=== PATIENT | male | born 1990 | race Hispanic/Latino ===

== ENCOUNTER 2018-07-06 01:37 | Inpatient (IN) | payer SELFPAY ==
[~2018-07-06] VITALS: Ht 170.2 cm; Wt 70.5 kg
[2018-07-06] MEDS ORDERED: DEXAMETHASONE SOD PHOSPHATE 10MG/ML 1ML VIAL ONE (02:00)
[2018-07-06] MEDS ORDERED: MAGNESIUM 2GM PREMIX 50ML 50 ML IV ONE (02:00)
[2018-07-06] MEDS ORDERED: SODIUM CHLORIDE 0.9% 1000ML 1,000 ML IV ONE ×2 (02:01→05:48)
[2018-07-06] MEDS ORDERED: IPRATROPIUM/ALBUTEROL SULFATE 3 ML SOLUTION IH ONE ×2 (02:04→07:07)
[2018-07-06 02:21] LABS: BASOPHILS % (AUTO) 1.1 % (0.0-5.0); EOSINOPHILS % (AUTO) 18.4 % (0.0-8.0); HEMATOCRIT 44.9 % (42-54); LYMPHOCYTES % (AUTO) 28.8 % (21.0-51.0); MEAN CORPUSCULAR HEMOGLOBIN 31.2 pg (27.0-33.0); MEAN CORPUSCULAR HGB CONC 35.9 g/dL (32.0-36.0); MEAN CORPUSCULAR VOLUME 86.9 fL (79-99); NEUTROPHILS % (AUTO) 42.7 % (40.0-77.0); PLATELET COUNT (AUTO) 209 K/uL (130-400); RED BLOOD CELL COUNT(AUTO) 5.16 MIL/uL (4.50-6.20); WHITE BLOOD COUNT (AUTO) 7.1 K/uL (4.8-10.8)
[2018-07-06 02:28] LABS: CREATININE 0.9 mg/dL (0.5-1.5); POTASSIUM 3.1 mmol/L (3.5-5.1)
[2018-07-06] MEDS ORDERED: ALBUTEROL SULFATE 0.083% 2.5 MG/3 ML INH IH ONE (04:02)
[2018-07-06] MEDS ORDERED: POTASSIUM CHLORIDE 20 MEQ ERTAB PO ONE (04:02)
[2018-07-06] MEDS ORDERED: SODIUM CHLORIDE 0.9% 1000ML 1,000 ML IV SCH (05:12)
[2018-07-06] MEDS ORDERED: ACETAMINOPHEN 325 MG TAB PO PRN ×2 (05:15)
[2018-07-06] MEDS ORDERED: ONDANSETRON HCL 4 MG/2 ML VIAL IV PRN (05:15)
[2018-07-06] MEDS ORDERED: METHYLPREDNISOLONE SOD SUCC 125MG/2ML VIAL IV SCH ×2 (05:15→13:15)
[2018-07-06] MEDS ORDERED: IPRATROPIUM/ALBUTEROL SULFATE 3 ML SOLUTION IH SCH (06:00)
[2018-07-06] MEDS ORDERED: FAMOTIDINE/PF 20 MG/2 ML VIAL IV SCH (09:00)
[2018-07-06 09:03] VITALS: BP 109/70
[2018-07-06] MEDS ORDERED: POTASSIUM CHLORIDE 20 MEQ ERTAB PO PRN (10:45)
[2018-07-06] MEDS ORDERED: LIDOCAINE HCL-MPF 1% 2ML VIAL IVP PRN (10:45)
[2018-07-06] MEDS ORDERED: POTASSIUM CHLORIDE 10MEQ/100ML 100 ML IV PRN (10:45)
[2018-07-06] MEDS ORDERED: POTASSIUM CHLORIDE 10% ELIXIR 20 MEQ/15 ML UDCUP PO PRN (10:45)
[2018-07-06 11:00] VITALS: BP 112/60
[2018-07-06] MEDS: IPRATROPIUM/ALBUTEROL SULFATE 3 ML SOLUTION IH SCH ×4 (13:12→18:13)
[2018-07-06 13:23] LABS: ABG BASE EXCESS 0.2 mmol/L (-2.0-3.0); ABG HCO3 25.2 mmol/L (21.0-28.0); ABG OXYGEN SATURATION 93.3 % (95.0-99.0); ABG PCO2 42 mmHg (35-48)
[2018-07-06] MEDS ORDERED: METHYLPREDNISOLONE SOD SUCC 125MG/2ML VIAL IVP SCH ×2 (14:45→21:00)
[2018-07-06] MEDS: ENOXAPARIN SODIUM 30 MG/0.3 ML SQ SCH ×2 (15:06→20:22)
[2018-07-06] MEDS: IPRATROPIUM/ALBUTEROL SULFATE 3 ML SOLUTION IH PRN ×3 (15:29→15:45)
--- NOTE | 2018-07-06 15:44 | NUR ---
INITIAL: Met w patient this afternoon to discuss dcp. Pt states that he has been living w his cousin Zoë, he is originally from [place] and does not remember her address. Pt states that he is independent w ambulation and ADLs. He states that he uses an albuterol inhaler but does not have a PCP to prescribe them. Per pt he feels safe and comfortable to return to his cousins house at [place]. Low income packet provided. Will continue to follow and wait for Md recommendations. Addendum: 07/06/18 at 1553 by LEXII MCCLELLAN CM Amended: Links added.
[2018-07-06 16:00] VITALS: BP 108/55
[2018-07-06] MEDS ORDERED: PHARMACY COMMUNICATION MISC PRN (18:00)
[2018-07-06] MEDS ORDERED: CHLORDIAZEPOXIDE HCL 25 MG CAP PO PRN (18:00)
[2018-07-06] MEDS ORDERED: LORAZEPAM 2 MG/ML 1 ML VIAL IVP PRN (18:00)
[2018-07-06 20:00] VITALS: BP 106/58
--- NOTE | 2018-07-06 23:14 | NUR ---
pt is not in his room, pt eloped. Omid and warehouse associate driver notified
== END 2018-07-06 21:10 | disposition left against medical advice (07) | DRG 202 ==
LOC: EDH 01:37 → EDHIP 01:38 → 4AH 07:58
PROVIDERS: ADMIT Internal Medicine; ATTEND Internal Medicine
DX: J45.902 Unspecified asthma with status asthmaticus (principal); J44.1 Chronic obstructive pulmonary disease with (acute) exacerbation; F17.210 Nicotine dependence, cigarettes, uncomplicated; F12.90 Cannabis use, unspecified, uncomplicated; E87.6 Hypokalemia
CPT/HCPCS: 36415; 36600; 71045; 80048; 82803; 85025; 93005; 94640; 94664; 99291; G0378; J1100; J1650; J2930; J3475; J7030

== ENCOUNTER 2018-09-28 19:59 | Emergency (ER) | payer OTHER ==
[2018-09-28 20:18] LABS: EOSINOPHILS % (AUTO) 11.6 % (0.0-8.0); HEMATOCRIT 41.8 % (42-54); LYMPHOCYTES % (AUTO) 23.3 % (21.0-51.0); MEAN CORPUSCULAR HEMOGLOBIN 30.8 pg (27.0-33.0); MEAN CORPUSCULAR HGB CONC 35.3 g/dL (32.0-36.0); MEAN CORPUSCULAR VOLUME 87.2 fL (79-99); MONOCYTES % (AUTO) 8.1 % (3.0-13.0); NUCLEATED RED BLOOD CELLS 0.1 % (0.0-0.19); PLATELET COUNT (AUTO) 222 K/uL (130-400); RED BLOOD CELL COUNT(AUTO) 4.79 MIL/uL (4.50-6.20); RED CELL DISTRIBUTION WIDTH 12.7 % (11.0-15.5); WHITE BLOOD COUNT (AUTO) 8.4 K/uL (4.8-10.8)
[2018-09-28] MEDS ORDERED: METHYLPREDNISOLONE SOD SUCC 125MG/2ML VIAL ONE (20:25)
[2018-09-28 20:47] LABS: PARTIAL THROMBOPLASTIN TIME 25.4 SEC (26.3-35.5)
[2018-09-28 21:00] LABS: ALANINE AMINOTRANSFERASE 20 U/L (12-78); ALBUMIN 4.3 g/dL (3.5-5.0); ALCOHOL, BLOOD < 3 mg/dL (0-10); AMYLASE 12 U/L (25-115); ASPARTATE AMINOTRANSFERASE 22 U/L (10-37); BILIRUBIN,TOTAL 0.9 mg/dL (0.2-1.0); CARBON DIOXIDE 31 mmol/L (21-32); CHLORIDE 106 mmol/L (101-111); GLOMERULAR FILTR. RATE CALC 94 mL/min (>60); GLUCOSE,RANDOM 93 mg/dL (70-105); LIPASE 56 U/L (114-286); SODIUM SERUM 144 mmol/L (136-145); TOTAL PROTEIN, SERUM 7.8 g/dL (6.0-8.3); UREA NITROGEN, BLOOD 8 mg/dL (7-18)
[2018-09-28 21:07] LABS: ACETAMINOPHEN < 1 mcg/mL (10-29); SALICYLATE < 2.8 mg/dL (2.8-20.0)
[2018-09-28 21:09] LABS: CREATINE KINASE, TOTAL 416 U/L (21-232); POTASSIUM 2.8 mmol/L (3.5-5.1)
[2018-09-28] MEDS ORDERED: POTASSIUM CHLORIDE 20 MEQ ERTAB PO ONE (21:18)
[2018-09-28 21:22] LABS: INR 1.08 (0.85-1.15); PROTHROMBIN TIME 11.3 SEC (9.6-11.6)
== END 2018-09-28 22:33 | disposition home or self-care (01) ==
LOC: EDH 19:59
DX: J45.901 Unspecified asthma with (acute) exacerbation (principal); F14.10 Cocaine abuse, uncomplicated; F12.10 Cannabis abuse, uncomplicated; F41.9 Anxiety disorder, unspecified; Z72.0 Tobacco use
CPT/HCPCS: 36415; 71045; 80053; 82150; 82550; 83690; 84484; 85025; 85610; 85730; 93005; 96374; 99285; G0480 ×2; G0481; J2930

== ENCOUNTER 2018-11-07 19:38 | Emergency (ER) | payer OTHER ==
[2018-11-07] MEDS ORDERED: METHYLPREDNISOLONE SOD SUCC 125MG/2ML VIAL ONE (19:51)
[2018-11-07] MEDS ORDERED: IPRATROPIUM/ALBUTEROL SULFATE 3 ML SOLUTION IH ONE (19:59)
[2018-11-07] MEDS ORDERED: ALBUTEROL SULFATE 0.083% 2.5 MG/3 ML INH IH ONE ×2 (20:07→20:14)
== END 2018-11-07 22:27 | disposition home or self-care (01) ==
LOC: EDH 19:38
DX: J45.21 Mild intermittent asthma with (acute) exacerbation (principal); F41.9 Anxiety disorder, unspecified; Z72.0 Tobacco use
CPT/HCPCS: 94640 ×3; 96374; 99285; J2930

== ENCOUNTER 2019-08-29 04:09 | Emergency (ER) | payer SELFPAY | END 2019-08-29 06:06 | disposition home or self-care (01) | LOC: EDH 04:09 | DX: J45.901 Unspecified asthma with (acute) exacerbation (principal); F41.9 Anxiety disorder, unspecified; Z72.0 Tobacco use ==

== ENCOUNTER 2019-08-29 07:37 | Inpatient (IN) | payer OTHER, SELFPAY ==
[2019-08-29] MEDS ORDERED: ALBUTEROL SULFATE 0.083% 2.5 MG/3 ML INH IH ONE (08:09)
[2019-08-29] MEDS ORDERED: ALBUTEROL INHALER 90MCG/INH IH ONE (08:12)
[2019-08-29] MEDS ORDERED: METHYLPREDNISOLONE SOD SUCC 125MG/2ML VIAL ONE (08:19)
[2019-08-29 08:40] LABS: BASOPHILS % (AUTO) 0.5 % (0.0-5.0); EOSINOPHILS % (AUTO) 13.9 % (0.0-8.0); LYMPHOCYTES % (AUTO) 16.6 % (21.0-51.0); MEAN CORPUSCULAR HEMOGLOBIN 29.7 pg (27.0-33.0); MEAN CORPUSCULAR HGB CONC 34.7 g/dL (32.0-36.0); MEAN CORPUSCULAR VOLUME 85.6 fL (79-99); MONOCYTES % (AUTO) 6.9 % (3.0-13.0); NEUTROPHILS % (AUTO) 61.8 % (40.0-77.0); PLATELET COUNT (AUTO) 302 K/uL (130-400); RED BLOOD CELL COUNT(AUTO) 5.26 MIL/uL (4.50-6.20); RED CELL DISTRIBUTION WIDTH 12.5 % (11.0-15.5); WHITE BLOOD COUNT (AUTO) 9.7 K/uL (4.8-10.8)
[2019-08-29 08:56] LABS: ALBUMIN 4.3 g/dL (3.5-5.0); BILIRUBIN,TOTAL 0.8 mg/dL (0.2-1.0); CREATININE 0.9 mg/dL (0.5-1.5); POTASSIUM 3.5 mmol/L (3.5-5.1); TOTAL PROTEIN, SERUM 8.2 g/dL (6.0-8.3)
[2019-08-29] MEDS ORDERED: ONDANSETRON HCL 4 MG/2 ML VIAL ONE (09:36)
[2019-08-29] MEDS ORDERED: MAGNESIUM 2GM PREMIX 50ML 50 ML IV ONE (09:36)
[2019-08-29] MEDS ORDERED: TERBUTALINE SULFATE VIAL 1MG/ML SQ ONE (09:37)
[2019-08-29] MEDS ORDERED: SODIUM CHLORIDE 0.9% 1000ML 1,000 ML IV ONE (09:38)
[2019-08-29] MEDS ORDERED: SODIUM CHLORIDE 0.9% 1000ML 1,000 ML IV SCH (14:26)
[2019-08-29] MEDS ORDERED: LEVOFLOXACIN 500 MG/D5W 100 ML 100 ML IV SCH (14:45)
[2019-08-29] MEDS: ALBUTEROL SULFATE 0.083% 2.5 MG/3 ML INH IH SCH ×2 (18:00→22:00)
[2019-08-29] MEDS ORDERED: LEVOFLOXACIN 500 MG/D5W 100 ML 100 ML ONE (18:11)
[2019-08-29] MEDS ORDERED: ENOXAPARIN SODIUM 30 MG/0.3 ML SQ ONE (19:00)
[2019-08-29] MEDS: FAMOTIDINE/PF 20 MG/2 ML VIAL IV SCH (21:00)
[2019-08-29] MEDS ORDERED: ENOXAPARIN SODIUM 40 MG/0.4 ML SYRINGE SQ ONE (21:21)
[2019-08-29] MEDS ORDERED: FAMOTIDINE/PF 20 MG/2 ML VIAL IV ONE (21:21)
[2019-08-30] MEDS: CEFTRIAXONE SODIUM 1 GM IVP SCH (00:45)
[2019-08-30] MEDS: ALBUTEROL SULFATE 0.083% 2.5 MG/3 ML INH IH SCH ×6 (02:00→22:00)
[2019-08-30] MEDS ORDERED: CEFTRIAXONE SODIUM 1 GM ONE (02:04)
[2019-08-30] MEDS: METHYLPREDNISOLONE SOD SUCC 40MG/ML 1ML IVP SCH ×4 (05:45→21:00)
[2019-08-30] MEDS ORDERED: METHYLPREDNISOLONE SOD SUCC 40MG/ML 1ML ONE ×3 (06:04→20:09)
[2019-08-30 06:25] LABS: BASOPHILS % (AUTO) 0.2 % (0.0-5.0); EOSINOPHILS % (AUTO) 0.4 % (0.0-8.0); LYMPHOCYTES % (AUTO) 15.7 % (21.0-51.0); MEAN CORPUSCULAR HEMOGLOBIN 29.7 pg (27.0-33.0); MEAN CORPUSCULAR HGB CONC 34.1 g/dL (32.0-36.0); MEAN CORPUSCULAR VOLUME 87.1 fL (79-99); MONOCYTES % (AUTO) 9.6 % (3.0-13.0); NEUTROPHILS % (AUTO) 73.9 % (40.0-77.0); PLATELET COUNT (AUTO) 242 K/uL (130-400); RED BLOOD CELL COUNT(AUTO) 4.48 MIL/uL (4.50-6.20); RED CELL DISTRIBUTION WIDTH 12.5 % (11.0-15.5)
[2019-08-30] MEDS ORDERED: GUAIFENESIN/DEXTROMETHORPHAN 1 EACH TAB.SR.12H PO ONE ×3 (06:36→20:09)
[2019-08-30 06:50] LABS: ALANINE AMINOTRANSFERASE 17 U/L (12-78); ALBUMIN 3.2 g/dL (3.5-5.0); ASPARTATE AMINOTRANSFERASE 17 U/L (10-37); BILIRUBIN,TOTAL 0.5 mg/dL (0.2-1.0); CARBON DIOXIDE 28 mmol/L (21-32); CHLORIDE 107 mmol/L (101-111); CREATININE 0.7 mg/dL (0.5-1.5); GLOMERULAR FILTR. RATE CALC 141 mL/min (>60); GLUCOSE,RANDOM 109 mg/dL (70-105); POTASSIUM 3.5 mmol/L (3.5-5.1); SODIUM SERUM 139 mmol/L (136-145); TOTAL PROTEIN, SERUM 6.3 g/dL (6.0-8.3); UREA NITROGEN, BLOOD 10 mg/dL (7-18)
[2019-08-30 07:04] LABS: CRP QUANTITATIVE < 2.00 mg/L (0.00-9.0)
[2019-08-30] MEDS ORDERED: LEVOFLOXACIN 500 MG/D5W 100 ML 100 ML ONE (08:30)
[2019-08-30] MEDS: ENOXAPARIN SODIUM 40 MG/0.4 ML SYRINGE SQ SCH (09:00)
[2019-08-30] MEDS: GUAIFENESIN 600 MG TABLET.ER PO SCH ×2 (09:00→21:00)
[2019-08-30] MEDS: FAMOTIDINE/PF 20 MG/2 ML VIAL IV SCH ×2 (09:00→21:00)
[2019-08-30] MEDS ORDERED: ENOXAPARIN SODIUM 40 MG/0.4 ML SYRINGE SQ ONE (09:41)
[2019-08-30] MEDS ORDERED: FAMOTIDINE/PF 20 MG/2 ML VIAL IV ONE ×2 (09:41→20:09)
--- NOTE | 2019-08-30 18:30 | NUR ---
INITIAL SW spoke to patient's cousin, Robert Keller, [phone]. Patient lives with cousin. As per cousin, patient's family lives in [place] but they have no communication. Patient has no home services or DME. He is presently unemployed. Patient is able to complete ADL's and drives. He has no PCP. Pharmacy is [facility] located in [place]. DCP is home. Patient has no insurance or benefits. He is a [place] citizen and has worked in the . Patient's cousin educated on [employer] $4 medication program and [employer] $5 medication program. Patient is being assisted by [employer] for financial matters. Addendum: 08/30/19 at 1833 by SHERYL MCDONALD Amended: Links added.
[2019-08-31] MEDS ORDERED: CEFTRIAXONE SODIUM 1 GM ONE (00:19)
[2019-08-31] MEDS: CEFTRIAXONE SODIUM 1 GM IVP SCH (00:45)
[2019-08-31] MEDS: ALBUTEROL SULFATE 0.083% 2.5 MG/3 ML INH IH SCH ×5 (02:00→17:20)
[2019-08-31 06:26] LABS: BASOPHILS % (AUTO) 0.1 % (0.0-5.0); LYMPHOCYTES % (AUTO) 7.7 % (21.0-51.0); MEAN CORPUSCULAR HEMOGLOBIN 29.8 pg (27.0-33.0); MEAN CORPUSCULAR HGB CONC 34.4 g/dL (32.0-36.0); MEAN CORPUSCULAR VOLUME 86.7 fL (79-99); MONOCYTES % (AUTO) 3.8 % (3.0-13.0); NEUTROPHILS % (AUTO) 87.9 % (40.0-77.0); PLATELET COUNT (AUTO) 271 K/uL (130-400); RED BLOOD CELL COUNT(AUTO) 4.73 MIL/uL (4.50-6.20); RED CELL DISTRIBUTION WIDTH 12.5 % (11.0-15.5); WHITE BLOOD COUNT (AUTO) 10.1 K/uL (4.8-10.8)
[2019-08-31 07:11] LABS: ALANINE AMINOTRANSFERASE 19 U/L (12-78); ALBUMIN 3.6 g/dL (3.5-5.0); ASPARTATE AMINOTRANSFERASE 14 U/L (10-37); BILIRUBIN,TOTAL 0.3 mg/dL (0.2-1.0); CARBON DIOXIDE 26 mmol/L (21-32); CHLORIDE 103 mmol/L (101-111); CREATININE 0.8 mg/dL (0.5-1.5); GLOMERULAR FILTR. RATE CALC 121 mL/min (>60); GLUCOSE,RANDOM 118 mg/dL (70-105); POTASSIUM 4.1 mmol/L (3.5-5.1); SODIUM SERUM 137 mmol/L (136-145); TOTAL PROTEIN, SERUM 6.8 g/dL (6.0-8.3); UREA NITROGEN, BLOOD 9 mg/dL (7-18)
[2019-08-31] MEDS ORDERED: METHYLPREDNISOLONE SOD SUCC 40MG/ML 1ML ONE ×3 (09:11→20:12)
[2019-08-31] MEDS ORDERED: ENOXAPARIN SODIUM 40 MG/0.4 ML SYRINGE SQ ONE (09:11)
[2019-08-31] MEDS ORDERED: FAMOTIDINE/PF 20 MG/2 ML VIAL IV ONE (09:13)
[2019-08-31] MEDS: GUAIFENESIN 600 MG TABLET.ER PO SCH (09:27)
[2019-08-31] MEDS: METHYLPREDNISOLONE SOD SUCC 40MG/ML 1ML IVP SCH ×2 (09:27→13:12)
[2019-08-31] MEDS: FAMOTIDINE/PF 20 MG/2 ML VIAL IV SCH (09:27)
[2019-08-31] MEDS: ENOXAPARIN SODIUM 40 MG/0.4 ML SYRINGE SQ SCH (09:27)
[2019-08-31] MEDS ORDERED: ACETAMINOPHEN 325 MG TAB PO PRN ×2 (19:30)
[2019-08-31] MEDS ORDERED: FAMOTIDINE 20MG TAB 20 MG TAB ONE (20:12)
[2019-08-31] MEDS ORDERED: ACETAMINOPHEN 325 MG TAB ONE (20:13)
[2019-09-01] MEDS ORDERED: AZITHROMYCIN 250 MG TABLET PO SCH (01:00)
[2019-09-01] MEDS ORDERED: CEFTRIAXONE SODIUM 1 GM ONE (02:12)
[2019-09-01] MEDS ORDERED: AZITHROMYCIN 500MG+NS 250ML 250 ML IV ONE (02:12)
[2019-09-01 03:49] LABS: HEMATOCRIT 42.3 % (42-54); LYMPHOCYTES % (AUTO) 7.2 % (21.0-51.0); MEAN CORPUSCULAR HEMOGLOBIN 29.4 pg (27.0-33.0); MEAN CORPUSCULAR HGB CONC 33.8 g/dL (32.0-36.0); MEAN CORPUSCULAR VOLUME 86.9 fL (79-99); NEUTROPHILS % (AUTO) 88.4 % (40.0-77.0); PLATELET COUNT (AUTO) 286 K/uL (130-400); RED BLOOD CELL COUNT(AUTO) 4.87 MIL/uL (4.50-6.20); RED CELL DISTRIBUTION WIDTH 12.4 % (11.0-15.5); WHITE BLOOD COUNT (AUTO) 8.5 K/uL (4.8-10.8)
[2019-09-01 04:00] LABS: ALANINE AMINOTRANSFERASE 25 U/L (12-78); ALBUMIN 3.7 g/dL (3.5-5.0); ASPARTATE AMINOTRANSFERASE 14 U/L (10-37); BILIRUBIN,TOTAL 0.2 mg/dL (0.2-1.0); CARBON DIOXIDE 26 mmol/L (21-32); CHLORIDE 102 mmol/L (101-111); CREATININE 0.7 mg/dL (0.5-1.5); GLOMERULAR FILTR. RATE CALC 141 mL/min (>60); GLUCOSE,RANDOM 135 mg/dL (70-105); POTASSIUM 4.1 mmol/L (3.5-5.1); SODIUM SERUM 137 mmol/L (136-145); TOTAL PROTEIN, SERUM 7.3 g/dL (6.0-8.3); UREA NITROGEN, BLOOD 16 mg/dL (7-18)
[2019-09-01 04:07] LABS: CRP QUANTITATIVE < 2.00 mg/L (0.00-9.0)
[2019-09-01] MEDS ORDERED: ONDANSETRON HCL 4 MG/2 ML VIAL ONE (04:11)
[2019-09-01] MEDS ORDERED: ONDANSETRON HCL 4 MG/2 ML VIAL IVP ONE (06:00)
[2019-09-01] MEDS ORDERED: BUDESONIDE 0.5 MG/2 ML INH IH SCH (06:00)
[2019-09-01] MEDS ORDERED: METHYLPREDNISOLONE SOD SUCC 40MG/ML 1ML ONE (08:06)
[2019-09-01] MEDS ORDERED: GUAIFENESIN/DEXTROMETHORPHAN 1 EACH TAB.SR.12H PO ONE (08:06)
[2019-09-01] MEDS ORDERED: ENOXAPARIN SODIUM 40 MG/0.4 ML SYRINGE SQ ONE (08:06)
[2019-09-01] MEDS ORDERED: FAMOTIDINE/PF 20 MG/2 ML VIAL IV ONE (08:07)
[2019-09-01] MEDS ORDERED: CEFD300C3 PO (09:51)
[2019-09-01] MEDS ORDERED: DEXA6TAB PO (09:51)
[2019-09-01] MEDS ORDERED: ALBU0.63 IH (09:51)
== END 2019-09-01 12:05 | disposition home or self-care (01) | DRG 189 ==
LOC: EDH 07:37 → EDHIP 07:38
PROVIDERS: ADMIT Internal Medicine; ATTEND Internal Medicine
DX: J96.01 Acute respiratory failure with hypoxia (principal); J45.901 Unspecified asthma with (acute) exacerbation; Z20.828 Contact with and (suspected) exposure to other viral communicable diseases; F17.200 Nicotine dependence, unspecified, uncomplicated; E78.5 Hyperlipidemia, unspecified; E03.9 Hypothyroidism, unspecified; D64.9 Anemia, unspecified; E11.65 Type 2 diabetes mellitus with hyperglycemia; F32.9 Major depressive disorder, single episode, unspecified
CPT/HCPCS: 36415; 71045; 80053; 84145; 84484; 85025; 85378; 86140; 86850; 86900; 86901; 93005; 99291; G0378; J0456; J0696; J1650; J1956; J2405; J2920; J2930; J3105; J3475; J3490; J7030; U0003

== ENCOUNTER 2020-01-08 23:26 | Inpatient (IN) | payer OTHER, SELFPAY ==
[~2020-01-08] VITALS: Ht 170.2 cm; Wt 65.2 kg
[~2020-01-08 23:26] MED LIST: ALBU0.63 IH; CEFD300C3 PO; DEXA6TAB PO
[2020-01-08] MEDS ORDERED: METHYLPREDNISOLONE SOD SUCC 125MG/2ML VIAL ONE (23:30)
[2020-01-08] MEDS ORDERED: IPRATROPIUM/ALBUTEROL SULFATE 3 ML SOLUTION IH ONE (23:34)
[2020-01-08] MEDS ORDERED: ALBUTEROL SULFATE 0.083% 2.5 MG/3 ML INH IH ONE (23:34)
[2020-01-09] MEDS ORDERED: EPINEPHRINE 1 MG/ML AMPULE ONE (00:08)
[2020-01-09] MEDS ORDERED: IPRATROPIUM/ALBUTEROL SULFATE 3 ML SOLUTION IH ONE (00:09)
[2020-01-09] MEDS ORDERED: MAGNESIUM 2GM PREMIX 50ML 50 ML IV ONE (00:09)
[2020-01-09 00:16] LABS: BASOPHILS % (AUTO) 0.5 % (0.0-5.0); EOSINOPHILS % (AUTO) 7.1 % (0.0-8.0); HEMATOCRIT 46.6 % (42-54); LYMPHOCYTES % (AUTO) 14.4 % (21.0-51.0); MEAN CORPUSCULAR HEMOGLOBIN 29.1 pg (27.0-33.0); MEAN CORPUSCULAR HGB CONC 33.5 g/dL (32.0-36.0); MEAN CORPUSCULAR VOLUME 86.9 fL (79-99); MONOCYTES % (AUTO) 6.3 % (3.0-13.0); NEUTROPHILS % (AUTO) 71.5 % (40.0-77.0); PLATELET COUNT (AUTO) 296 K/uL (130-400); RED BLOOD CELL COUNT(AUTO) 5.36 MIL/uL (4.50-6.20); RED CELL DISTRIBUTION WIDTH 12.7 % (11.0-15.5); WHITE BLOOD COUNT (AUTO) 13.4 K/uL (4.8-10.8)
[2020-01-09 00:19] LABS: POTASSIUM 3.8 mmol/L (3.5-5.1)
[2020-01-09 00:24] LABS: ALBUMIN 4.1 g/dL (3.5-5.0); BILIRUBIN,TOTAL 0.3 mg/dL (0.2-1.0); TOTAL PROTEIN, SERUM 8.1 g/dL (6.0-8.3)
[2020-01-09 00:34] LABS: ABG BASE EXCESS 0.1 mmol/L (-2.0-3.0); ABG HCO3 25.8 mmol/L (21.0-28.0); ABG OXYGEN SATURATION 87.1 % (95.0-99.0); ABG PCO2 46 mmHg (35-48)
[2020-01-09 01:25] LABS: APPEARANCE,URINE Cloudy (CLEAR); BILIRUBIN,URINE Negative (NEGATIVE); COLOR,URINE Yellow (YELLOW); GLUCOSE, URINE (UA) Negative (NEGATIVE); KETONES,URINE Negative (NEGATIVE); LEUKOCYTE ESTERASE ,URINE Negative (NEGATIVE); NITRATE,URINE Negative (NEGATIVE); OCCULT BLOOD,URINE Negative (NEGATIVE); PH,URINE 7.5 (5.0-8.0); PROTEIN,URINE Negative (NEGATIVE)
[2020-01-09 01:31] LABS: BACTERIA,URINE None Seen /HPF (None Seen); RBC,URINE None Seen /HPF (0-1); SQUAMOUS EPITHELIAL CELL,UR Rare /HPF (0-2); WBC,URINE None Seen /HPF (0-1)
[2020-01-09 01:32] LABS: AMORPHOUS SEDIMENT,UR Moderate /LPF (None Seen)
[2020-01-09] MEDS ORDERED: IPRATROPIUM 0.5 MG/2.5 ML INH IH ONE (03:40)
[2020-01-09] MEDS ORDERED: ALBUTEROL SULFATE 0.083% 2.5 MG/3 ML INH IH ONE (03:40)
[2020-01-09] MEDS ORDERED: ONDANSETRON HCL 4 MG/2 ML VIAL IV PRN (04:30)
[2020-01-09] MEDS ORDERED: MAG HYDROX/AL HYDROX/SIMETH ES 30 ML SUSP UDCUP PO PRN (04:30)
[2020-01-09] MEDS ORDERED: IPRATROPIUM 0.5 MG/2.5 ML INH IH SCH (04:30)
[2020-01-09] MEDS ORDERED: LACTULOSE 20 GM/30 ML UDCUP PO PRN (04:30)
[2020-01-09] MEDS: AZITHROMYCIN 500MG+NS 250ML 250 ML IV SCH (04:30)
[2020-01-09] MEDS: METHYLPREDNISOLONE SOD SUCC 125MG/2ML VIAL IVP SCH ×4 (04:30→22:27)
[2020-01-09] MEDS ORDERED: ACETAMINOPHEN 325 MG TAB PO PRN ×2 (04:30)
[2020-01-09] MEDS ORDERED: GUAIFENESIN-DM 200/20 MG 10 ML PO PRN (04:30)
[2020-01-09 04:39] LABS: AMPHET/METH SCREEN,URINE NEGATIVE (NEGATIVE); BARBITURATE SCREEN, URINE NEGATIVE (NEGATIVE); BENZODIAZEPINES SCREEN,URINE NEGATIVE (NEGATIVE); CANNABINOID SCREEN,URINE POSITIVE (NEGATIVE); COCAINE SCREEN,URINE POSITIVE (NEGATIVE); OPIATE SCREEN,URINE NEGATIVE (NEGATIVE); PHENCYCLIDINE SCREEN,URINE NEGATIVE (NEGATIVE)
[2020-01-09] MEDS ORDERED: AZITHROMYCIN 500MG+NS 250ML 250 ML IV ONE (05:42)
[2020-01-09 06:05] VITALS: BP 115/76
[2020-01-09 07:00] LABS: BASOPHILS % (AUTO) 0.2 % (0.0-5.0); HEMATOCRIT 43.1 % (42-54); LYMPHOCYTES % (AUTO) 2.8 % (21.0-51.0); MEAN CORPUSCULAR HEMOGLOBIN 29.3 pg (27.0-33.0); MEAN CORPUSCULAR HGB CONC 33.9 g/dL (32.0-36.0); MEAN CORPUSCULAR VOLUME 86.5 fL (79-99); MONOCYTES % (AUTO) 0.6 % (3.0-13.0); NEUTROPHILS % (AUTO) 96.2 % (40.0-77.0); PLATELET COUNT (AUTO) 265 K/uL (130-400); RED BLOOD CELL COUNT(AUTO) 4.98 MIL/uL (4.50-6.20); RED CELL DISTRIBUTION WIDTH 12.7 % (11.0-15.5); WHITE BLOOD COUNT (AUTO) 10.8 K/uL (4.8-10.8)
[2020-01-09 07:13] LABS: ALBUMIN 3.8 g/dL (3.5-5.0); CREATININE 0.9 mg/dL (0.5-1.5); PHOSPHORUS 3.1 mg/dL (2.5-4.9); POTASSIUM 4.4 mmol/L (3.5-5.1)
--- NOTE | 2020-01-09 07:15 | NUR ---
ASSESSMENT NOTE PT IS AAOX4, DOESN'T HAVE SOB, BUT HAS WHEEZING UPON EXHALATION. RESP HAS BEEN CALLED FOR HIS BREATHING TX WILL CONTINUE TO MONITOR.
[2020-01-09 07:29] LABS: B-TYPE NATRIURETIC PEPTIDE < 5 pg/mL (0-100)
[2020-01-09 08:19] VITALS: BP 118/77
[2020-01-09] MEDS: FAMOTIDINE 20MG TAB 20 MG TAB PO SCH ×2 (08:20→20:06)
[2020-01-09] MEDS ORDERED: ALBUTEROL SULFATE 0.083% 2.5 MG/3 ML INH IH SCH (09:00)
--- NOTE | 2020-01-09 09:47 | NUR ---
DR. SENIOR PAGE DR. SENIOR KITCHEN PORTER
[2020-01-09] MEDS: BUDESONIDE 0.25 MG/2 ML INH IH SCH ×3 (11:00→21:13)
--- NOTE | 2020-01-09 11:00 | NUR ---
MET WITH PATIENT AT BEDSIDE FOR DC PLANNING PATIENT STATES HE IS INDEPENDENT, DRIVES, AND RECENTLY MOVED TO [facility] FROM [place] FOR PERSONAL REASONS, MOST FAMILY STILL IN [place]. STATES LIVES WITH COUSIN PAWEL WHO WILL PROVIDE TRANSPORT ON DISCHARGE. HAS NEVER SEEN AN MD, BU[facility] MEDS FROM [facility], WAS IN [facility], ONLY RECD ALBUTEROL IN [place]. DISCUSSED [employer]- PENDING, WILL DROP OFF PRIOR TO DISCHARGE . PENDING STUDENT SUCCESS COACH TO SEE. Addendum: 01/09/20 at 1745 by BLANKA LEE RN CM Amended: Links added.
[2020-01-09] MEDS: ALBUTEROL INHALER 90MCG/INH IH SCH ×3 (11:01→18:16)
--- NOTE | 2020-01-09 11:24 | NUR ---
RESPIRATORY WILL GIVE PULMICORT ONCE PCR IS DONE
[2020-01-09 12:35] VITALS: BP 118/64
[2020-01-09 17:17] VITALS: BP 108/66
--- NOTE | 2020-01-09 18:54 | NUR ---
DR. NADEEN SENIOR CAME TO SEE PT AT BEDSIDE, WILL SEE PATIENT IN 2 WEEKS AFTER DC.
[2020-01-09 19:53] VITALS: BP 117/59
[2020-01-09] MEDS ORDERED: MONTELUKAST SODIUM 10 MG TAB PO SCH (21:00)
[2020-01-10] MEDS: IPRATROPIUM/ALBUTEROL SULFATE 3 ML SOLUTION IH SCH ×4 (00:06→16:57)
[2020-01-10 00:23] VITALS: BP 122/63
[2020-01-10] MEDS: AZITHROMYCIN 500MG+NS 250ML 250 ML IV SCH (03:23)
[2020-01-10] MEDS: METHYLPREDNISOLONE SOD SUCC 125MG/2ML VIAL IVP SCH ×3 (03:23→15:28)
[2020-01-10 03:58] VITALS: BP 115/60
[2020-01-10 05:45] LABS: BASOPHILS % (AUTO) 0.1 % (0.0-5.0); HEMATOCRIT 42.3 % (42-54); LYMPHOCYTES % (AUTO) 3.3 % (21.0-51.0); MEAN CORPUSCULAR HEMOGLOBIN 29.2 pg (27.0-33.0); MEAN CORPUSCULAR HGB CONC 33.6 g/dL (32.0-36.0); MONOCYTES % (AUTO) 5.1 % (3.0-13.0); NEUTROPHILS % (AUTO) 91.1 % (40.0-77.0); PLATELET COUNT (AUTO) 276 K/uL (130-400); RED BLOOD CELL COUNT(AUTO) 4.86 MIL/uL (4.50-6.20); RED CELL DISTRIBUTION WIDTH 12.7 % (11.0-15.5); WHITE BLOOD COUNT (AUTO) 20.1 K/uL (4.8-10.8)
[2020-01-10 06:22] LABS: CREATININE 0.8 mg/dL (0.5-1.5); POTASSIUM 4.1 mmol/L (3.5-5.1)
[2020-01-10] MEDS: BUDESONIDE 0.25 MG/2 ML INH IH SCH ×2 (07:11→18:00)
[2020-01-10 08:01] VITALS: BP 125/86
[2020-01-10] MEDS: FAMOTIDINE 20MG TAB 20 MG TAB PO SCH (09:51)
[2020-01-10 11:15] VITALS: BP 118/67
[2020-01-10] MEDS ORDERED: MONTELUKAST SODIUM 10 MG TAB PO SCH (15:00)
[2020-01-10 16:32] VITALS: BP 124/81
--- NOTE | 2020-01-10 18:57 | NUR ---
DR. LIRIANO PT LEFT AMA DR. LOPEZ
--- NOTE | 2020-01-10 18:57 | NUR ---
LOREN PT LEFT LOREN DIDN'T WANT TO WAIT. HE FOUND OUT HIS PCR WAS NEG AND HE LEFT
[2020-01-11] MEDS ORDERED: MONTELUKAST SODIUM 10 MG TAB PO SCH (09:00)
[2020-01-12 20:08] LABS: HEPATITIS A ANTIBODY IGM Negative (Negative); HEPATITIS Bs ANTIGEN SCREEN P Negative (Negative)
== END 2020-01-10 18:57 | disposition left against medical advice (07) | DRG 189 ==
LOC: EDH 23:26 → OBSVTOIN 23:27 → EDHIP 23:27 → 3BH 01-09 05:55
PROVIDERS: ADMIT Family Medicine; ATTEND Family Medicine
DX: J96.01 Acute respiratory failure with hypoxia (principal); J45.51 Severe persistent asthma with (acute) exacerbation; E87.2 Acidosis; D72.10 Eosinophilia, unspecified; F14.10 Cocaine abuse, uncomplicated; F12.10 Cannabis abuse, uncomplicated; Z20.828 Contact with and (suspected) exposure to other viral communicable diseases; Z83.3 Family history of diabetes mellitus
CPT/HCPCS: 36415; 36600; 71045; 80048; 80053; 80069; 80305; 81001; 82803; 82948; 83880; 85025; 86701; 86706; 86709; 86717; 87071; 87077; 87186; 87205; 87340; 87350; 87390; 87426; 87520; 94640; 94664; 99291; G0378; J0171; J0456; J2930; J3475; U0003

== ENCOUNTER 2021-06-28 14:00 | Observation (INO) | payer OTHER ==
[~2021-06-28] VITALS: Ht 170.2 cm; Wt 62.9 kg
[2021-06-28] MEDS ORDERED: IPRATROPIUM/ALBUTEROL SULFATE 3 ML SOLUTION IH ONE (14:07)
[2021-06-28 14:21] LABS: BASOPHILS % (AUTO) 0.4 % (0.0-5.0); EOSINOPHILS % (AUTO) 3.4 % (0.0-8.0); HEMATOCRIT 41.7 % (42-54); LYMPHOCYTES % (AUTO) 8.4 % (21.0-51.0); MEAN CORPUSCULAR HEMOGLOBIN 29.5 pg (27.0-33.0); MEAN CORPUSCULAR VOLUME 84.2 fL (79-99); MONOCYTES % (AUTO) 8.6 % (3.0-13.0); NEUTROPHILS % (AUTO) 78.9 % (40.0-77.0); PLATELET COUNT (AUTO) 219 K/uL (130-400); RED BLOOD CELL COUNT(AUTO) 4.95 MIL/uL (4.50-6.20); RED CELL DISTRIBUTION WIDTH 11.9 % (11.0-15.5)
[2021-06-28] MEDS ORDERED: ALBUTEROL 0.083% 2.5 MG/3 ML INH IH ONE ×3 (14:25→14:30)
[2021-06-28] MEDS ORDERED: BUDESONIDE 0.5 MG/2 ML INH IH ONE (14:27)
[2021-06-28] MEDS ORDERED: SOLU-MEDROL 125MG VIAL IVP ONE (14:30)
[2021-06-28] MEDS ORDERED: ACETAMINOPHEN 500 MG TABLET PO ONE (14:30)
[2021-06-28] MEDS ORDERED: GUAIFENESIN-CODEINE 5 ML SYRUP PO ONE (14:30)
[2021-06-28] MEDS ORDERED: MAGNESIUM 4GM PREMIX 100ML 100 ML IV PRN (14:30)
[2021-06-28] MEDS ORDERED: 0.9%NACL 1000ML 1,000 ML IV SCH (14:30)
[2021-06-28 14:50] LABS: ALBUMIN 3.7 g/dL (3.5-5.0); BILIRUBIN,TOTAL 0.4 mg/dL (0.2-1.0); CREATININE 0.9 mg/dL (0.5-1.5); POTASSIUM 3.3 mmol/L (3.5-5.1); TOTAL PROTEIN, SERUM 7.1 g/dL (6.0-8.3)
[2021-06-28 14:52] LABS: APPEARANCE,URINE Clear (CLEAR); BILIRUBIN,URINE Negative (NEGATIVE); COLOR,URINE Dark Yellow (YELLOW); GLUCOSE, URINE (UA) Negative (NEGATIVE); KETONES,URINE Trace mg/dL (NEGATIVE); LEUKOCYTE ESTERASE ,URINE Negative (NEGATIVE); NITRATE,URINE Negative (NEGATIVE); OCCULT BLOOD,URINE Negative (NEGATIVE); PH,URINE 5.5 (5.0-8.0); PROTEIN,URINE Trace mg/dL (NEGATIVE)
[2021-06-28 14:59] LABS: BACTERIA,URINE Rare /HPF (None Seen); RBC,URINE 0-1 /HPF (0-1); SQUAMOUS EPITHELIAL CELL,UR Rare /HPF (0-2); WBC,URINE 0-1 /HPF (0-1)
[2021-06-28 15:00] LABS: AMPHET/METH SCREEN,URINE NEGATIVE (NEGATIVE); BARBITURATE SCREEN, URINE NEGATIVE (NEGATIVE); BENZODIAZEPINES SCREEN,URINE NEGATIVE (NEGATIVE); CANNABINOID SCREEN,URINE POSITIVE (NEGATIVE); COCAINE SCREEN,URINE POSITIVE (NEGATIVE); OPIATE SCREEN,URINE NEGATIVE (NEGATIVE); PHENCYCLIDINE SCREEN,URINE NEGATIVE (NEGATIVE)
[2021-06-28] MEDS: SOLU-MEDROL 40MG VIAL IVP SCH ×2 (15:30→23:43)
[2021-06-28] MEDS ORDERED: LORAZEPAM 2 MG/ML 1 ML VIAL IVP ONE (15:30)
[2021-06-28] MEDS ORDERED: MONTELUKAST SODIUM 10 MG TAB PO SCH (15:30)
[2021-06-28] MEDS ORDERED: POTASSIUM BICARB/CIT AC 25 MEQ TABLET.EFF PO ONE (15:30)
[2021-06-28] MEDS ORDERED: ONDANSETRON 4MG INJ IV PRN (15:30)
[2021-06-28] MEDS ORDERED: ACETAMINOPHEN 325 MG TAB PO PRN ×2 (15:30)
[2021-06-28 16:12] LABS: ABG BASE EXCESS -0.5 mmol/L (-2.0-3.0); ABG HCO3 24.7 mmol/L (21.0-28.0); ABG OXYGEN SATURATION 95.9 % (95.0-99.0); ABG PCO2 43 mmHg (35-48)
[2021-06-28] MEDS: CETIRIZINE HCL 5 MG TABLET PO SCH (16:22)
[2021-06-28] MEDS: DOXYCYCLINE 100MG+NS 250ML 250 ML IV SCH (16:22)
[2021-06-28] MEDS: IPRATROPIUM/ALBUTEROL SULFATE 3 ML SOLUTION IH SCH ×2 (18:16→23:00)
[2021-06-28] MEDS: FAMOTIDINE 20MG TAB PO SCH (20:25)
[2021-06-28] MEDS: BUDESONIDE 0.5 MG/2 ML INH IH SCH ×2 (21:00→23:00)
[2021-06-29] VITALS (7 sets, daily range): BP systolic 91–125; BP diastolic 51–70
[2021-06-29] MEDS: DOXYCYCLINE 100MG+NS 250ML 250 ML IV SCH ×2 (04:28→15:04)
[2021-06-29] MEDS ORDERED: 0.9% NACL 250ML 250 ML ONE (04:28)
[2021-06-29] MEDS ORDERED: 0.9%NACL 1000ML 1,000 ML IV SCH (04:30)
[2021-06-29] MEDS: BUDESONIDE 0.5 MG/2 ML INH IH SCH ×3 (06:00→18:42)
[2021-06-29] MEDS ORDERED: ALBU8.5H8 IH (06:03)
[2021-06-29] MEDS: IPRATROPIUM/ALBUTEROL SULFATE 3 ML SOLUTION IH SCH ×3 (06:27→18:42)
[2021-06-29] MEDS: FAMOTIDINE 20MG TAB PO SCH ×2 (08:07→23:30)
[2021-06-29] MEDS: SOLU-MEDROL 40MG VIAL IVP SCH ×3 (08:07→23:30)
[2021-06-29] MEDS: CETIRIZINE HCL 5 MG TABLET PO SCH (08:08)
[2021-06-29] MEDS: MONTELUKAST SODIUM 10 MG TAB PO SCH (08:08)
[2021-06-29] MEDS: ENOXAPARIN SODIUM 40 MG/0.4 ML SYRINGE SQ SCH (08:08)
[2021-06-30] MEDS: IPRATROPIUM/ALBUTEROL SULFATE 3 ML SOLUTION IH SCH ×3 (00:03→11:57)
[2021-06-30] MEDS: DOXYCYCLINE 100MG+NS 250ML 250 ML IV SCH (03:48)
[2021-06-30 04:18] VITALS: BP 115/76
[2021-06-30 06:20] LABS: BASOPHILS % (AUTO) 0.1 % (0.0-5.0); HEMATOCRIT 42.6 % (42-54); LYMPHOCYTES % (AUTO) 7.1 % (21.0-51.0); MEAN CORPUSCULAR HEMOGLOBIN 29.6 pg (27.0-33.0); MEAN CORPUSCULAR HGB CONC 34.3 g/dL (32.0-36.0); MEAN CORPUSCULAR VOLUME 86.2 fL (79-99); MONOCYTES % (AUTO) 5.3 % (3.0-13.0); PLATELET COUNT (AUTO) 241 K/uL (130-400); RED BLOOD CELL COUNT(AUTO) 4.94 MIL/uL (4.50-6.20); RED CELL DISTRIBUTION WIDTH 11.9 % (11.0-15.5); WHITE BLOOD COUNT (AUTO) 9.3 K/uL (4.8-10.8)
[2021-06-30] MEDS: BUDESONIDE 0.5 MG/2 ML INH IH SCH (06:25)
[2021-06-30 06:29] LABS: CREATININE 0.7 mg/dL (0.5-1.5); MAGNESIUM 1.9 mg/dL (1.80-2.40); POTASSIUM 4.2 mmol/L (3.5-5.1)
[2021-06-30] MEDS: SOLU-MEDROL 40MG VIAL IVP SCH (06:50)
[2021-06-30] MEDS: CETIRIZINE HCL 5 MG TABLET PO SCH (08:40)
[2021-06-30] MEDS: MONTELUKAST SODIUM 10 MG TAB PO SCH (08:40)
[2021-06-30] MEDS: FAMOTIDINE 20MG TAB PO SCH (08:40)
[2021-06-30] MEDS: ENOXAPARIN SODIUM 40 MG/0.4 ML SYRINGE SQ SCH (08:41)
[2021-06-30] MEDS ORDERED: DOXY100T2 PO (09:58)
[2021-06-30] MEDS ORDERED: PRED20TA3 PO (09:58)
[2021-06-30] MEDS ORDERED: FLUT1BLS IH (09:58)
== END 2021-06-30 12:25 | disposition home or self-care (01) ==
LOC: EDH 14:00 → EDHIP 14:01 → 3CH 06-29 00:32
PROVIDERS: ADMIT Internal Medicine; ATTEND Internal Medicine
DX: J45.902 Unspecified asthma with status asthmaticus (principal); Z20.822 Contact with and (suspected) exposure to COVID-19; F12.10 Cannabis abuse, uncomplicated; F14.10 Cocaine abuse, uncomplicated; F17.200 Nicotine dependence, unspecified, uncomplicated; F41.9 Anxiety disorder, unspecified; Z79.899 Other long term (current) drug therapy; Z91.19 Patient's noncompliance with other medical treatment and regimen
CPT/HCPCS: 36415 ×3; 36600; 71045; 80048; 80053; 80305; 81001; 82803; 83735; 83880; 84484; 85025 ×2; 86480; 87071; 87077; 87186; 87205; 87635; 87804 ×2; 93005; 94640 ×13; 94664; 96365; 96366 ×2; 96368; 96372 ×2; 96375; 96376 ×3; 99285; C9803; G0378 ×41; J1650 ×2; J2060; J2920 ×4; J2930; J3475; J3490 ×4; J7030 ×2; J7050